=== PATIENT | female | born 1960 | race Caucasian/White ===

== ENCOUNTER → 2016-07-09 | Outpatient (CLI) | payer OTHER ==
[~2016-07-09] VITALS: Ht 172.7 cm; Wt 65.8 kg
[~2016-07-09] MED LIST: AMERGE PO; AMERGE2.5 MG PO; ELMIRON100 MG PO
== END | disposition home or self-care (01) ==
LOC: AMB 06-25 11:00 → OPR 06-25 12:30 → AMB 09:33
PROC: 0WJP8ZZ Inspection of Gastrointestinal Tract, Via Natural or Artificial Opening Endoscopic Approach (ICD-10-PCS; principal; 2016-07-09)
DX: K64.8 Other hemorrhoids (principal); K62.5 Hemorrhage of anus and rectum; Z88.0 Allergy status to penicillin
CPT/HCPCS: B4087; J2250; J3010